=== PATIENT | female | born 1930 | race Caucasian/White ===

== ENCOUNTER 2018-09-01 09:54 | Day surgery (SDC) | payer MEDICARE ==
[2018-08-31 17:22] LABS: BASOPHILS % (AUTO) 0.5 % (0-1); EOSINOPHILS # (AUTO) 0.2 X10'3 (0-0.9); EOSINOPHILS % (AUTO) 3.2 % (0-6); HEMATOCRIT 34.3 % (35.0-45.0); HEMOGLOBIN 11.9 g/dl (12.0-16.0); LYMPHOCYTES # (AUTO) 1.9 X10'3 (1.1-4.8); LYMPHOCYTES % (AUTO) 33.1 % (21-51); MEAN CORPUSCULAR HEMOGLOBIN 30.6 PG (27.0-31.0); MEAN CORPUSCULAR HGB CONC 34.7 g/dL (33.0-36.5); MEAN CORPUSCULAR VOLUME 88.4 FL (78-98); MEAN PLATELET VOLUME 7.3 FL (7.4-10.4); MONOCYTES # (AUTO) 0.5 X10'3 (0-0.9); MONOCYTES % (AUTO) 8.4 % (2-12); NEUTROPHILS # (AUTO) 3.1 X10'3 (1.8-7.7); NEUTROPHILS % (AUTO) 54.8 % (42-75); PLATELET COUNT 163 X10'3 (140-440); RED BLOOD COUNT 3.88 X10'6 (4.20-5.60); RED CELL DISTRIBUTION WIDTH 13.9 % (11.5-14.5); WHITE BLOOD COUNT 5.6 X10'3 (4.5-11.0)
[2018-08-31 17:31] LABS: ALBUMIN 3.5 G/DL (3.4-5.0); ANION GAP 5 (8-16); BLOOD UREA NITROGEN 25 MG/DL (7-18); BUN/CREATININE RATIO 19.5 (6.6-38.0); CHLORIDE 105 MMOL/L (99-107); CREATININE 1.28 MG/DL (0.40-0.90); GLUCOSE 112 MG/DL (70-104); INR 1.1 INR; PARTIAL THROMBOPLASTIN TIME 27 SECONDS (22-32); POTASSIUM 3.9 MMOL/L (3.5-5.1); SODIUM 140 MMOL/L (135-145); TOTAL CARBON DIOXIDE 29.7 MMOL/L (24-32); eGFR 39 ML/MIN
[~2018-09-01] VITALS: Ht 167.6 cm; Wt 54.4 kg
[2018-09-01] VITALS (10 sets, daily range): BP systolic 118–164; BP diastolic 61–96
[2018-09-01] MEDS ORDERED: normal saline 1000ml 1,000 ML IV SCH (10:20)
[2018-09-01] MEDS ORDERED: ceFAZolin 2gm in dextrose, iso 100 ML IV ONE (10:20)
[2018-09-01] MEDS ORDERED: cefazolin/dext.iso 2gm/100ml 100 ML IV ONE (10:29)
[2018-09-01] MEDS ORDERED: LATA2.5D2 LEFTEYE (10:49)
[2018-09-01] MEDS ORDERED: FISH12002 PO (10:49)
[2018-09-01] MEDS ORDERED: ASPI-611 PO (10:49)
[2018-09-01] MEDS ORDERED: TOBR5DRO7 RIGHTEYE (10:49)
[2018-09-01] MEDS ORDERED: TOBR5DRO7 LEFTEYE (10:49)
[2018-09-01] MEDS ORDERED: FLO0.1T PO (10:49)
[2018-09-01] MEDS ORDERED: ATOR20TA PO (10:49)
[2018-09-01] MEDS ORDERED: MULT-933 PO (10:49)
[2018-09-01] MEDS ORDERED: METO-539 PO (10:49)
[2018-09-01] MEDS ORDERED: ceFAZolin 1GM/D5W- ADD-VANTAGE 50 ML IV ONE (11:05)
[2018-09-01] MEDS ORDERED: vancomycin/NS 1 GM ADD-VANTAGE 250 ML IV ONE (11:10)
[2018-09-01] MEDS ORDERED: LIDOcaine 1% w/EPI 1:100,000 30ml vial (MDV) ONE (12:05)
[2018-09-01] MEDS ORDERED: clindamycin phosphate 150mg/ml inj. ONE (12:35)
[2018-09-01] MEDS ORDERED: midazolam 2 mg/2 ml injection ONE (12:36)
[2018-09-01] MEDS ORDERED: fentaNYL/PF 50MCG/1 ML 2ML syringe ONE (12:37)
--- NOTE | 2018-09-01 14:41 | NUR ---
PT SITTING UP ATE 100 % SANDWICH TRAY' 200 ML JUICE, FRUITCUP
== END 2018-09-01 18:00 | disposition home or self-care (01) ==
LOC: SSTAY O 09:54
PROVIDERS: ATTEND Internal Medicine Cardiovascular Disease
DX: Z45.010 Encounter for checking and testing of cardiac pacemaker pulse generator [battery] (principal); I49.5 Sick sinus syndrome
CPT/HCPCS: 33228; 36415; 80048; 85025; 85610; 85730; 93005; 99152; 99153; A6449; C1785; J2250; J3010; J3370; J3490; A4620; J0690; J7030